=== PATIENT | female | born 1970 | race Two or more races ===

== ENCOUNTER 2018-02-03 18:03 | Emergency (ER) | payer OTHER ==
[~2018-02-03] VITALS: Ht 152.4 cm; Wt 68.0 kg
[2018-02-03] MEDS ORDERED: [UNRECOGNIZED DRUG - OTHER] (18:20)
[2018-02-03] MEDS ORDERED: ULTRACET PO (20:39)
== END 2018-02-03 20:45 | disposition home or self-care (01) ==
LOC: ER 18:03
DX: R51 Headache (principal); M54.2 Cervicalgia

== ENCOUNTER 2018-03-12 08:12 | Day surgery (SDC) | payer OTHER ==
[~2018-03-12 08:12] MED LIST: ULTRACET PO; [UNRECOGNIZED DRUG - OTHER]; [UNRECOGNIZED DRUG - OTHER] PO
== END 2018-03-12 15:15 | disposition home or self-care (01) ==
LOC: CIR.AMB 08:12
DX: N84.0 Polyp of corpus uteri (principal)

== ENCOUNTER 2020-08-28 01:23 | Emergency (ER) | payer OTHER ==
[~2020-08-28] VITALS: Ht 152.4 cm; Wt 70.3 kg
[2020-08-28] MEDS ORDERED: ACETAMINOPHEN650 M2 PO (02:50)
[2020-08-28] MEDS ORDERED: NORFLEX100MG PO (02:50)
[2020-08-28] MEDS ORDERED: MEDROLPACK PO (02:50)
== END 2020-08-28 03:03 | disposition home or self-care (01) ==
LOC: ER 01:23
DX: M54.2 Cervicalgia (principal); M25.511 Pain in right shoulder